=== PATIENT | female | born 1945 | race Caucasian/White ===

== ENCOUNTER → 2024-05-18 11:13 | Outpatient (REF) | payer OTHER, SELFPAY | LOC: HWRCS 11:13 | PROVIDERS: ATTENDING PHYSICIAN Internal Medicine; FAMILY PHYSICIAN Family Medicine | DX: I10 Essential (primary) hypertension (principal); R07.89 Other chest pain | CPT/HCPCS: 93306 ==

== ENCOUNTER → 2024-05-29 08:25 | Outpatient (REF) | payer OTHER, SELFPAY | LOC: HWRCS 08:25 | PROVIDERS: ATTENDING PHYSICIAN Internal Medicine; FAMILY PHYSICIAN Family Medicine | DX: I10 Essential (primary) hypertension (principal); R07.89 Other chest pain | CPT/HCPCS: 78452; 93017; A9500; J2785 ==

== ENCOUNTER → 2024-06-09 12:26 | Outpatient (REF) | payer OTHER, SELFPAY | LOC: MRI 3T 12:26 | PROVIDERS: ATTENDING PHYSICIAN Nurse Practitioner Gerontology; FAMILY PHYSICIAN Family Medicine | DX: M19.012 Primary osteoarthritis, left shoulder (principal); S43.422A Sprain of left rotator cuff capsule, initial encounter | CPT/HCPCS: 73221 ==